=== PATIENT | male | born 1935 | race African-American/Black ===

== ENCOUNTER 2017-03-04 16:45 | Emergency (ER) | payer MEDICARE, OTHER ==
[~2017-03-04] VITALS: Ht 180.3 cm; Wt 82.0 kg
[~2017-03-04 16:45] MED LIST: ATEN50TA; HYDR-4135; HYDR25TA; LISI-186; OMEP20CA10; POTA99TA4; SIMV5TAB53
[2017-03-04] MEDS ORDERED: PROT20 PO (17:06)
[2017-03-04] MEDS ORDERED: HYDR-523 PO (17:06)
[2017-03-04] MEDS ORDERED: CLOP75TA33 PO (17:06)
[2017-03-04] MEDS ORDERED: POTA10TA15 PO (17:06)
[2017-03-04] MEDS ORDERED: ONDANSETRON HCL 4MG/2ML VIAL IV STA (17:31)
[2017-03-04] MEDS ORDERED: MORPHINE SULFATE 4 MG/ML CPJ (NOT FOR IM USE) IV STA (17:31)
[2017-03-04 18:00] LABS: INR 1.1
[2017-03-04 18:03] LABS: BASOPHILS % 0.6 % (0.0-2.0); EOSINOPHILS % 1.3 % (0.0-5.0); HEMATOCRIT. 39.5 % (42.0-52.0); LYMPHOCYTES % 23.5 % (20.0-50.0); MEAN CORPUSCULAR HEMOGLOBIN 28.6 pg (28.0-32.0); MEAN PLATELET VOLUME 9.3 fl (7.4-10.4); MONOCYTES % 6.1 % (2.0-8.0); NEUTROPHILS % 68.5 % (40.0-76.0); PLATELET 147 x1000/uL (130-400); RED BLOOD CELL COUNT 4.54 mill/uL (4.7-6.1); RED CELL DISTRIBUTION WIDTH 15.1 % (11.6-14.6)
[2017-03-04 18:10] LABS: CARBON DIOXIDE 31 mEq/L (21-32); CHLORIDE 105 mEq/L (98-107)
[2017-03-04 18:11] LABS: TROPONIN I < 0.02 ng/mL (0.00-0.04)
[2017-03-04] MEDS ORDERED: MORPHINE SULFATE 4 MG/ML CPJ (NOT FOR IM USE) IV ONE (20:30)
[2017-03-04 20:46] VITALS: BP 128/68
== END 2017-03-04 21:02 | disposition short-term general hospital (02) ==
LOC: ER 16:45
DX: S72.141A Displaced intertrochanteric fracture of right femur, initial encounter for closed fracture (principal); W18.39XA Other fall on same level, initial encounter; Y93.89 Activity, other specified; I10 Essential (primary) hypertension; Y92.89 Other specified places as the place of occurrence of the external cause; I51.7 Cardiomegaly; J98.11 Atelectasis; Z88.0 Allergy status to penicillin; Z88.6 Allergy status to analgesic agent; Z86.73 Personal history of transient ischemic attack (TIA), and cerebral infarction without residual deficits; Z85.46 Personal history of malignant neoplasm of prostate
CPT/HCPCS: 36415; 70450; 71010; 73502; 80053; 84484; 85025; 85610; 93005; 96374; 96375; 96376; 99285; J2270; J2405

== ENCOUNTER 2019-03-04 09:20 | Emergency (ER) | payer OTHER ==
[~2019-03-04] VITALS: Ht 175.3 cm; Wt 90.0 kg
[~2019-03-04 09:20] MED LIST changes: +CLOP75TA33 PO; +HYDR-523 PO; -OMEP20CA10; +OMEP20CA5; +POTA10TA15 PO; +PROT20 PO; -SIMV5TAB53; +SIMV5TAB58
[2019-03-04 11:10] LABS: CHLORIDE 109 mEq/L (98-107)
[2019-03-04 11:12] LABS: BASOPHILS % 0.2 % (0.0-2.0); EOSINOPHILS % 0.7 % (0.0-5.0); HEMATOCRIT. 38.3 % (42.0-52.0); HEMOGLOBIN. 12.7 g/dL (14.0-18.0); LYMPHOCYTES % 17.1 % (20.0-50.0); MEAN CORPUSCULAR HEMOGLOBIN 30.1 pg (28.0-32.0); MEAN CORPUSCULAR VOLUME 90.9 fL (80.0-94.0); MEAN PLATELET VOLUME 8.5 fl (7.4-10.4); MONOCYTES % 4.6 % (2.0-8.0); NEUTROPHILS % 77.4 % (40.0-76.0); PLATELET 159 x1000/uL (130-400); RED BLOOD CELL COUNT 4.22 mill/uL (4.7-6.1); RED CELL DISTRIBUTION WIDTH 14.6 % (11.6-14.6)
[2019-03-04] MEDS ORDERED: FENTANYL CITRATE/PF 50MCG/ML 2ML VIAL IV ONE (11:30)
[2019-03-04] MEDS ORDERED: ONDANSETRON HCL 4MG/2ML INJ IV ONE ×2 (11:30→15:45)
[2019-03-04 11:33] LABS: CLARITY URINE CLEAR (CLEAR); COLOR URINE YELLOW (YELLOW); KETONES URINE NEGATIVE (NEGATIVE); LEUKOCYTE ESTERASE URINE NEGATIVE (NEGATIVE); NITRITE URINE NEGATIVE (NEGATIVE); OCCULT BLOOD URINE NEGATIVE (NEGATIVE); PROTEIN URINE NEGATIVE (NEGATIVE); UROBILINOGEN URINE 0.2 E.U./dL (0.2-1.0)
[2019-03-04 11:42] LABS: PROTHROMBIN TIME 10.7 sec (9.6-11.0)
[2019-03-04 11:50] VITALS: BP 166/93
[2019-03-04] MEDS ORDERED: MORPHINE SULFATE 4 MG/ML CPJ (NOT FOR IM USE) IV ONE (15:45)
== END 2019-03-04 14:15 | disposition short-term general hospital (02) ==
LOC: ER 09:20
DX: S32.502A Unspecified fracture of left pubis, initial encounter for closed fracture (principal); S32.501A Unspecified fracture of right pubis, initial encounter for closed fracture; I10 Essential (primary) hypertension; W01.0XXA Fall on same level from slipping, tripping and stumbling without subsequent striking against object, initial encounter; Y93.9 Activity, unspecified; Y92.9 Unspecified place or not applicable; Z88.0 Allergy status to penicillin; Z88.6 Allergy status to analgesic agent
CPT/HCPCS: 36415; 72192; 73522; 80053; 81003; 85025; 85610; 96374; 96375; 96376; 99285; J2270; J2405; J3010; Z7610

== ENCOUNTER 2019-10-21 11:57 | Inpatient (IN) | payer MEDICARE, OTHER ==
[~2019-10-21] VITALS: Ht 180.3 cm; Wt 88.1 kg
[~2019-10-21 11:57] MED LIST changes: +OMEP20CA14; -OMEP20CA5
[2019-10-21] MEDS ORDERED: SODIUM CHLORIDE 0.9% 500 ML IV ONE (12:22)
[2019-10-21] MEDS ORDERED: DILTIAZEM HCL 5MG/ML 5ML VIAL IV ONE ×2 (12:45→15:45)
[2019-10-21 13:15] LABS: BASOPHILS % 0.4 % (0.0-2.0); HEMATOCRIT. 39.9 % (42.0-52.0); HEMOGLOBIN. 13.2 g/dL (14.0-18.0); LYMPHOCYTES % 7.1 % (20.0-50.0); MEAN CORPUSCULAR HEMOGLOBIN 29.7 pg (28.0-32.0); MEAN CORPUSCULAR VOLUME 89.8 fL (80.0-94.0); MEAN PLATELET VOLUME 9.9 fl (7.4-10.4); MONOCYTES % 7.4 % (2.0-8.0); NEUTROPHILS % 85.1 % (40.0-76.0); PLATELET 160 x1000/uL (130-400); RED BLOOD CELL COUNT 4.45 mill/uL (4.7-6.1)
[2019-10-21 13:24] LABS: INR 1.2; PROTHROMBIN TIME 12.6 sec (9.6-11.0)
[2019-10-21 13:33] LABS: CHLORIDE 116 mEq/L (98-107)
[2019-10-21 13:38] LABS: ETHANOL BLOOD < 10 mg/dL
[2019-10-21 13:42] LABS: CREATINE KINASE 88 IU/L (39-308)
[2019-10-21 14:55] LABS: CLARITY URINE CLOUDY (CLEAR); COLOR URINE DARK YELLOW (YELLOW); KETONES URINE NEGATIVE (NEGATIVE); LEUKOCYTE ESTERASE URINE 1+ (NEGATIVE); NITRITE URINE POSITIVE (NEGATIVE); OCCULT BLOOD URINE 1+ (NEGATIVE); PROTEIN URINE 2+ (NEGATIVE); SPECIFIC GRAVITY URINE 1.025 (1.005-1.030)
[2019-10-21] MEDS ORDERED: LEVOFLOXACIN 250MG PREMIX 50 ML IV ONE (15:15)
[2019-10-21 15:17] LABS: *AMPHETAMINES SCREEN URINE NEGATIVE (NEGATIVE); *BARBITURATES SCREEN URINE NEGATIVE (NEGATIVE); *BENZODIAZEPINES SCREEN URINE NEGATIVE (NEGATIVE); *COCAINE SCREEN URINE NEGATIVE (NEGATIVE)
[2019-10-21 15:18] LABS: CANNABINOID URINE SCREEN NEGATIVE (NEGATIVE); METHADONE URINE SCREEN NEGATIVE (NEGATIVE); OPIATES URINE SCREEN NEGATIVE (NEGATIVE); PHENCYCLIDINE URINE SCREEN NEGATIVE (NEGATIVE)
[2019-10-21] MEDS ORDERED: DILTIAZEM HCL 125 MG in DEXT 5% WATER 100 ML IV ONE (16:15)
[2019-10-21] MEDS ORDERED: DILTIAZEM HCL 125MG in DEXTROSE 5% WATER 125ML IV ONE (17:00)
[2019-10-21] MEDS ORDERED: ONDANSETRON HCL 4MG/2ML INJ IV PRN (19:00)
[2019-10-21] MEDS ORDERED: LEVOFLOXACIN 500MG PREMIX 100 ML IV SCH (19:00)
[2019-10-21] MEDS ORDERED: IPRATROPIUM/ALBUTEROL 0.5-3(2.5)MG/3ML NEB NEB PRN (19:00)
[2019-10-21] MEDS ORDERED: GUAIFENESIN 200MG/10ML SUGAR FREE UDC PO PRN (19:00)
[2019-10-21] MEDS ORDERED: ACETAMINOPHEN 325MG TABLET PO PRN (19:00)
[2019-10-21] MEDS ORDERED: TRAMADOL 50MG TABLET PO PRN (19:00)
[2019-10-21] MEDS ORDERED: NITROGLYCERIN 0.4MG TABLET SL SL PRN (19:00)
[2019-10-21] MEDS ORDERED: ZOLPIDEM TARTRATE 5MG TABLET PO PRN (19:00)
[2019-10-21] MEDS ORDERED: CLONIDINE 0.1MG TABLET PO PRN (19:00)
[2019-10-21] MEDS ORDERED: MAGNESIUM/ALUMINUM HYDROXIDE/SIMETHICONE 30ML UDC PO PRN (19:00)
[2019-10-21] MEDS ORDERED: DOCUSATE SODIUM 100MG CAPSULE PO PRN (19:00)
[2019-10-21 20:05] LABS: T4 FREE 1.12 ng/dL (0.76-1.46)
[2019-10-21 20:26] LABS: FOLIC ACID (FOLATE) SERUM 14.6 ng/mL (>5.38)
[2019-10-21 23:29] LABS: CREATINE KINASE MB FRACTION 1.7 ng/mL (0.5-3.6)
[2019-10-22] VITALS (8 sets, daily range): BP systolic 121–158; BP diastolic 66–110
[2019-10-22] MEDS ORDERED: DILTIAZEM HCL 60MG TABLET PO NR (03:30)
[2019-10-22] MEDS ORDERED: ENOXAPARIN 100MG/ML SYR SUBCUT SCH (05:00)
[2019-10-22] MEDS: DEXT 5%/0.45% NACL 1000ML 1,000 ML IV SCH ×2 (05:34→11:38)
[2019-10-22 05:49] LABS: CREATINE KINASE MB FRACTION 2.1 ng/mL (0.5-3.6)
[2019-10-22] MEDS ORDERED: DILTIAZEM HCL 60MG TABLET PO SCH (09:00)
[2019-10-22] MEDS: CLOPIDOGREL 75MG TABLET PO SCH (10:20)
[2019-10-22] MEDS: FAMOTIDINE 20MG TABLET PO SCH (10:21)
[2019-10-22] MEDS: DILTIAZEM HCL 90MG TABLET PO SCH ×3 (10:22→21:53)
[2019-10-22] MEDS: CEFTRIAXONE 1 G PREMIX 50 ML IV SCH (11:43)
[2019-10-22] MEDS ORDERED: LEVOFLOXACIN 250MG PREMIX 50 ML IV SCH (15:00)
[2019-10-23] VITALS (9 sets, daily range): BP systolic 126–148; BP diastolic 73–91
[2019-10-23] MEDS: DILTIAZEM HCL 90MG TABLET PO SCH ×3 (02:59→14:54)
[2019-10-23] MEDS ORDERED: ENOXAPARIN 100MG/ML SYR SUBCUT SCH ×2 (06:00→18:00)
[2019-10-23 06:50] LABS: BASOPHILS % 0.1 % (0.0-2.0); EOSINOPHILS % 0.7 % (0.0-5.0); HEMOGLOBIN. 12.3 g/dL (14.0-18.0); MEAN CORPUSCULAR HEMOGLOBIN 29.1 pg (28.0-32.0); MEAN PLATELET VOLUME 9.7 fl (7.4-10.4); MONOCYTES % 8.1 % (2.0-8.0); NEUTROPHILS % 78.1 % (40.0-76.0); PLATELET 128 x1000/uL (130-400); RED BLOOD CELL COUNT 4.23 mill/uL (4.7-6.1)
[2019-10-23 06:57] LABS: CHLORIDE 115 mEq/L (98-107)
[2019-10-23 07:05] LABS: PHOSPHORUS 3.1 mg/dL (2.5-4.9)
[2019-10-23] MEDS ORDERED: METOPROLOL TARTRATE 25MG TABLET PO SCH (09:00)
[2019-10-23] MEDS: CLOPIDOGREL 75MG TABLET PO SCH (09:32)
[2019-10-23] MEDS: FAMOTIDINE 20MG TABLET PO SCH (09:32)
[2019-10-23] MEDS: CEFTRIAXONE 1 G PREMIX 50 ML IV SCH (12:10)
[2019-10-23] MEDS ORDERED: B12/1TAB SL (14:07)
[2019-10-23] MEDS ORDERED: TAMS-11 MT (14:07)
[2019-10-23] MEDS ORDERED: BISO5TAB13 MT (14:07)
[2019-10-23] MEDS ORDERED: ATEN100T MT (14:07)
[2019-10-23] MEDS ORDERED: FURO-152 PO (14:07)
[2019-10-23] MEDS ORDERED: HYDR100T26 MT (14:14)
[2019-10-23] MEDS ORDERED: SIMV-46 MT (14:14)
[2019-10-23] MEDS ORDERED: FAMO20TA8 MT (14:14)
[2019-10-23] MEDS ORDERED: TROS20TA3 MT (14:14)
[2019-10-23] MEDS ORDERED: SERT25TA74 MT (14:14)
[2019-10-23] MEDS ORDERED: MIRT15TA6 MT (14:14)
[2019-10-24] MEDS ORDERED: CEFTRIAXONE 1 G PREMIX 50 ML IV SCH (11:00)
== END 2019-10-23 15:30 | disposition short-term general hospital (02) | DRG 91 ==
LOC: ER 12:19 → 5EST 17:18 → ENRESERV 22:32 → CANRESERV 22:32 → ENRESERV 10-22 07:42
PROVIDERS: ADMIT Internal Medicine; ATTEND Internal Medicine
DX: G92 Toxic encephalopathy (principal); I21.4 Non-ST elevation (NSTEMI) myocardial infarction; N17.0 Acute kidney failure with tubular necrosis; E87.0 Hyperosmolality and hypernatremia; N39.0 Urinary tract infection, site not specified; R17 Unspecified jaundice; D63.8 Anemia in other chronic diseases classified elsewhere; I11.9 Hypertensive heart disease without heart failure; I48.91 Unspecified atrial fibrillation; R74.0 Nonspecific elevation of levels of transaminase and lactic acid dehydrogenase [LDH]; R79.89 Other specified abnormal findings of blood chemistry; D64.9 Anemia, unspecified; J45.909 Unspecified asthma, uncomplicated; Z79.02 Long term (current) use of antithrombotics/antiplatelets; Z85.46 Personal history of malignant neoplasm of prostate; Z86.73 Personal history of transient ischemic attack (TIA), and cerebral infarction without residual deficits; Z88.0 Allergy status to penicillin; Z88.6 Allergy status to analgesic agent; Z79.899 Other long term (current) drug therapy
CPT/HCPCS: 36415; 70551; 71045; 80053; 80061; 80305; 80307; 80320; 80329; 81003; 82140; 82550; 82553; 82607; 82746; 82962; 83036; 83540; 83550; 83735; 83880; 84100; 84439; 84443; 84484; 85025; 87077; 87186; 93005; 93306; 93970; 96365; 99291; J0696; J1650; J1956; J3490; J7040; J7060; G0480